=== PATIENT | female | born 1950 | race Caucasian/White ===

== ENCOUNTER 2017-09-15 17:21 | Inpatient (IN) | payer MEDICARE, SELFPAY ==
[~2017-09-15] VITALS: Ht 165.1 cm; Wt 51.7 kg
[~2017-09-15 17:21] MED LIST: BENZ2TAB58 PO; BUPR150SR PO; DONE10TA36 PO; GUAI100S35 PO; HC1C1.5 TP; IBUP-675 PO; LORA1TAB3 PO; PANT40TA25 PO; RISP1 PO; SERT100T12 PO
[2017-09-15 18:20] LABS: BASOPHILS % (AUTO) 0.5 % (0.0-2.0); EOSINOPHILS % (AUTO) 2.4 % (1.0-6.0); HEMATOCRIT 40.4 % (36-46); HEMOGLOBIN 13.8 g/dL (12.0-16.0); LYMPHOCYTES # (AUTO) 2.1 K/uL (1.0-4.8); LYMPHOCYTES % (AUTO) 28.6 % (22.0-44.0); MEAN CORPUSCULAR HEMOGLOBIN 29.8 pg (26.0-34.0); MEAN CORPUSCULAR HGB CONC 34.2 G/dL (31.0-37.0); MEAN CORPUSCULAR VOLUME 87 fL (80-100); MONOCYTES # (AUTO) 0.5 K/uL (0.1-1.0); MONOCYTES % (AUTO) 7.4 % (2.0-9.0); NEUTROPHILS # (AUTO) 4.4 K/uL (1.8-7.7); NEUTROPHILS % (AUTO) 61.1 % (40.0-70.0); PLATELET COUNT (AUTO) 179 K/uL (150-450); RED BLOOD CELL COUNT(AUTO) 4.63 MIL/uL (4.00-5.20); RED CELL DISTRIBUTION WIDTH 12.7 % (11.5-14.5)
[2017-09-15 18:30] LABS: ANION GAP 8 mmol/L (8-16); CALCIUM, TOTAL 9.2 mg/dL (8.8-10.5); CARBON DIOXIDE 28 mmol/L (22-29); CHLORIDE 104 mmol/L (98-107); CREATININE 0.79 mg/dL (0.60-1.30); GLOMERULAR FILTR. RATE CALC > 60 mL/min (>60); GLUCOSE,RANDOM 91 mg/dL (70-110); POTASSIUM 3.6 mmol/L (3.5-5.1); SODIUM SERUM 140 mmol/L (136-145); UREA NITROGEN, BLOOD 6 mg/dL (7-18)
[2017-09-15 18:35] LABS: ALANINE AMINOTRANSFERASE 21 U/L (12-78); ALBUMIN 3.3 g/dL (3.4-5.0); ALKALINE PHOSPHATASE 39 U/L (46-116); ASPARTATE AMINOTRANSFERASE 21 U/L (15-37); BILIRUBIN,TOTAL 0.3 mg/dL (0.1-1.0); CREATINE KINASE, TOTAL 48 U/L (26-192)
[2017-09-15 18:46] LABS: SALICYLATE < 2.8 mg/dL (2.8-20.0)
[2017-09-15 18:48] LABS: B-TYPE NATRIURETIC PEPTIDE 78 pg/mL (0-100)
[2017-09-15 21:39] LABS: ACETAMINOPHEN < 2 mcg/mL (10-30)
[2017-09-15] MEDS ORDERED: IBUPROFEN 400 MG TABLET PO PRN (22:15)
[2017-09-15 22:18] VITALS: BP 140/64
[2017-09-16 00:06] VITALS: BP 98/61
[2017-09-16] MEDS: ZOLPIDEM TARTRATE 10 MG TABLET PO PRN ×2 (00:10→21:03)
[2017-09-16] MEDS: LORazepam 2 MG TABLET PO PRN ×3 (00:10→21:03)
[2017-09-16 07:29] LABS: CHOL/HDL RATIO 3.9 (3.9-5.7)
[2017-09-16 08:00] VITALS: BP 130/92
[2017-09-16 08:40] LABS: AMPHET/METH SCREEN,URINE NEGATIVE (NEGATIVE); BARBITURATE SCREEN, URINE NEGATIVE (NEGATIVE); BENZODIAZEPINES SCREEN,URINE NEGATIVE (NEGATIVE); CANNABINOID SCREEN,URINE NEGATIVE (NEGATIVE); COCAINE SCREEN,URINE NEGATIVE (NEGATIVE); METHADONE SCREEN, URINE NEGATIVE (NEGATIVE); OPIATE SCREEN,URINE NEGATIVE (NEGATIVE)
[2017-09-16 08:41] LABS: PHENCYCLIDINE SCREEN,URINE NEGATIVE (NEGATIVE)
[2017-09-16] MEDS: PANTOPRAZOLE SODIUM 40 MG DR TABLET PO SCH (09:09)
[2017-09-16] MEDS: DONEPEZIL HCL 10 MG TABLET PO SCH (09:09)
[2017-09-16 12:32] LABS: APPEARANCE,URINE CLEAR (CLEAR); BILIRUBIN,URINE NEGATIVE (NEGATIVE); GLUCOSE, URINE (UA) NEGATIVE (NEGATIVE); KETONES,URINE NEGATIVE (NEGATIVE); LEUKOCYTE ESTERASE ,URINE NEGATIVE (NEGATIVE); NITRATE,URINE NEGATIVE (NEGATIVE); OCCULT BLOOD,URINE NEGATIVE (NEGATIVE); PROTEIN,URINE NEGATIVE (NEGATIVE); UROBILINOGEN,URINE 0.2 mg/dL (<=1.0)
[2017-09-16 12:35] LABS: AMPHET/METH SCREEN,URINE NEGATIVE (NEGATIVE); BARBITURATE SCREEN, URINE NEGATIVE (NEGATIVE); BENZODIAZEPINES SCREEN,URINE NEGATIVE (NEGATIVE); CANNABINOID SCREEN,URINE NEGATIVE (NEGATIVE); COCAINE SCREEN,URINE NEGATIVE (NEGATIVE); METHADONE SCREEN, URINE NEGATIVE (NEGATIVE); OPIATE SCREEN,URINE NEGATIVE (NEGATIVE)
[2017-09-16 12:36] LABS: PHENCYCLIDINE SCREEN,URINE NEGATIVE (NEGATIVE)
[2017-09-16] MEDS: HALOPERIDOL 5 MG TABLET PO PRN (16:23)
[2017-09-16 17:09] VITALS: BP 118/72
[2017-09-16] MEDS ORDERED: IBUPROFEN 400 MG TABLET PO PRN (20:45)
[2017-09-17 08:15] VITALS: BP 121/63
[2017-09-17] MEDS: PANTOPRAZOLE SODIUM 40 MG DR TABLET PO SCH (08:27)
[2017-09-17] MEDS: DONEPEZIL HCL 10 MG TABLET PO SCH (08:27)
[2017-09-17] MEDS ORDERED: [UNRECOGNIZED DRUG - OTHER] PO SCH (09:00)
[2017-09-17] MEDS ORDERED: PANTOPRAZOLE SODIUM 40 MG DR TABLET PO SCH (09:00)
[2017-09-17] MEDS: HALOPERIDOL 5 MG TABLET PO PRN ×2 (09:30→16:40)
[2017-09-17] MEDS: LORazepam 2 MG TABLET PO PRN (14:43)
[2017-09-17] MEDS: ZOLPIDEM TARTRATE 10 MG TABLET PO PRN (21:00)
[2017-09-17 21:18] VITALS: BP 125/74
[2017-09-18 01:00] VITALS: BP 118/72
[2017-09-18] MEDS: LORazepam 2 MG TABLET PO PRN (01:07)
[2017-09-18] MEDS: DONEPEZIL HCL 10 MG TABLET PO SCH (08:14)
[2017-09-18] MEDS: PANTOPRAZOLE SODIUM 40 MG DR TABLET PO SCH (08:14)
[2017-09-18 09:57] VITALS: BP 133/60
[2017-09-18] MEDS: ACETAMINOPHEN 325 MG TABLET PO PRN (09:57)
[2017-09-18] MEDS: ONDANSETRON HCL 4 MG TABLET PO PRN (15:20)
[2017-09-18 16:26] VITALS: BP 120/64
[2017-09-18] MEDS: ZOLPIDEM TARTRATE 10 MG TABLET PO PRN (21:36)
[2017-09-19 02:22] VITALS: BP 124/70
[2017-09-19] MEDS: ONDANSETRON HCL 4 MG TABLET PO PRN ×2 (06:51→14:56)
[2017-09-19] MEDS: PANTOPRAZOLE SODIUM 40 MG DR TABLET PO SCH (07:50)
[2017-09-19] MEDS: DONEPEZIL HCL 10 MG TABLET PO SCH (07:50)
[2017-09-19 09:27] VITALS: BP 117/72
[2017-09-19] MEDS: LORazepam 2 MG TABLET PO PRN (09:45)
[2017-09-19 16:58] VITALS: BP 117/79
[2017-09-19] MEDS: ZOLPIDEM TARTRATE 10 MG TABLET PO PRN (21:24)
[2017-09-20 02:10] VITALS: BP 145/82
[2017-09-20] MEDS: ONDANSETRON HCL 4 MG TABLET PO PRN (05:38)
[2017-09-20 08:11] VITALS: BP 136/71
[2017-09-20] MEDS: DONEPEZIL HCL 10 MG TABLET PO SCH (09:34)
[2017-09-20] MEDS: PANTOPRAZOLE SODIUM 40 MG DR TABLET PO SCH (09:34)
[2017-09-20 16:33] VITALS: BP 141/74
[2017-09-20] MEDS: ZOLPIDEM TARTRATE 10 MG TABLET PO PRN (20:40)
[2017-09-21 02:23] VITALS: BP 126/74
[2017-09-21 08:00] VITALS: BP 139/57
[2017-09-21] MEDS: DONEPEZIL HCL 10 MG TABLET PO SCH (10:11)
[2017-09-21] MEDS: DOCUSATE SODIUM 100 MG CAPSULE PO SCH ×2 (10:12→16:41)
[2017-09-21] MEDS: PANTOPRAZOLE SODIUM 40 MG DR TABLET PO SCH (10:12)
[2017-09-21] MEDS: BENZTROPINE MESYLATE 1 MG TABLET PO SCH ×2 (10:12→16:41)
[2017-09-21] MEDS: RisperiDONE 2 MG TABLET PO SCH ×2 (10:12→16:41)
[2017-09-21] MEDS: SERTRALINE HCL 100 MG TABLET PO SCH (10:13)
[2017-09-21] MEDS ORDERED: BISACODYL 5 MG EC TABLET PO PRN (14:15)
[2017-09-21 16:51] VITALS: BP 128/76
[2017-09-22 02:08] VITALS: BP 125/72
[2017-09-22 06:54] VITALS: BP 122/75
[2017-09-22] MEDS: ACETAMINOPHEN 325 MG TABLET PO PRN (06:59)
[2017-09-22] MEDS: RisperiDONE 2 MG TABLET PO SCH ×2 (08:45→16:07)
[2017-09-22] MEDS: SERTRALINE HCL 100 MG TABLET PO SCH (08:45)
[2017-09-22] MEDS: PANTOPRAZOLE SODIUM 40 MG DR TABLET PO SCH (08:45)
[2017-09-22] MEDS: BENZTROPINE MESYLATE 1 MG TABLET PO SCH ×2 (08:45→16:07)
[2017-09-22] MEDS: DOCUSATE SODIUM 100 MG CAPSULE PO SCH ×2 (08:45→16:07)
[2017-09-22] MEDS: DONEPEZIL HCL 10 MG TABLET PO SCH (08:46)
[2017-09-22 09:45] VITALS: BP 123/75
[2017-09-22] MEDS: LORazepam 2 MG TABLET PO PRN (14:45)
[2017-09-22 16:24] VITALS: BP 118/43
[2017-09-23] MEDS: DONEPEZIL HCL 10 MG TABLET PO SCH (08:36)
[2017-09-23] MEDS: RisperiDONE 2 MG TABLET PO SCH ×2 (08:36→16:32)
[2017-09-23] MEDS: DOCUSATE SODIUM 100 MG CAPSULE PO SCH ×2 (08:36→16:33)
[2017-09-23] MEDS: SERTRALINE HCL 100 MG TABLET PO SCH (08:36)
[2017-09-23] MEDS: BENZTROPINE MESYLATE 1 MG TABLET PO SCH ×2 (08:36→16:33)
[2017-09-23] MEDS: PANTOPRAZOLE SODIUM 40 MG DR TABLET PO SCH (08:36)
[2017-09-23 08:55] VITALS: BP 132/69
[2017-09-23 17:22] VITALS: BP 123/91
[2017-09-24 03:25] VITALS: BP 97/69
[2017-09-24 08:00] VITALS: BP 120/79
[2017-09-24] MEDS: DOCUSATE SODIUM 100 MG CAPSULE PO SCH ×2 (08:24→16:48)
[2017-09-24] MEDS: RisperiDONE 2 MG TABLET PO SCH ×2 (08:24→16:49)
[2017-09-24] MEDS: SERTRALINE HCL 100 MG TABLET PO SCH (08:24)
[2017-09-24] MEDS: DONEPEZIL HCL 10 MG TABLET PO SCH (08:24)
[2017-09-24] MEDS: BENZTROPINE MESYLATE 1 MG TABLET PO SCH ×2 (08:25→16:49)
[2017-09-24] MEDS: PANTOPRAZOLE SODIUM 40 MG DR TABLET PO SCH (08:27)
[2017-09-24 20:16] VITALS: BP 125/58
[2017-09-25] MEDS: BENZTROPINE MESYLATE 1 MG TABLET PO SCH ×2 (08:11→16:23)
[2017-09-25] MEDS: SERTRALINE HCL 100 MG TABLET PO SCH (08:11)
[2017-09-25] MEDS: DONEPEZIL HCL 10 MG TABLET PO SCH (08:12)
[2017-09-25] MEDS: DOCUSATE SODIUM 100 MG CAPSULE PO SCH ×2 (08:12→16:23)
[2017-09-25] MEDS: PANTOPRAZOLE SODIUM 40 MG DR TABLET PO SCH (08:12)
[2017-09-25] MEDS: RisperiDONE 2 MG TABLET PO SCH ×2 (08:12→16:23)
[2017-09-25 09:07] VITALS: BP 134/77
[2017-09-25 17:07] VITALS: BP 128/79
[2017-09-26 04:43] VITALS: BP 133/77
[2017-09-26] MEDS: LORazepam 2 MG TABLET PO PRN (04:43)
[2017-09-26 08:06] VITALS: BP 141/66
[2017-09-26] MEDS: PANTOPRAZOLE SODIUM 40 MG DR TABLET PO SCH (08:27)
[2017-09-26] MEDS: RisperiDONE 2 MG TABLET PO SCH ×2 (08:27→16:19)
[2017-09-26] MEDS: BENZTROPINE MESYLATE 1 MG TABLET PO SCH ×2 (08:27→16:19)
[2017-09-26] MEDS: DOCUSATE SODIUM 100 MG CAPSULE PO SCH ×2 (08:27→16:20)
[2017-09-26] MEDS: DONEPEZIL HCL 10 MG TABLET PO SCH (08:27)
[2017-09-26] MEDS: SERTRALINE HCL 100 MG TABLET PO SCH (08:27)
[2017-09-26] MEDS ORDERED: BENZOCAINE/MENTHOL LOZENGE [8 LOZENGES/PACKET] PO PRN (15:00)
[2017-09-26 22:09] VITALS: BP 98/85
[2017-09-27 08:20] VITALS: BP 121/82
[2017-09-27] MEDS: DONEPEZIL HCL 10 MG TABLET PO SCH (08:36)
[2017-09-27] MEDS: RisperiDONE 2 MG TABLET PO SCH ×2 (08:36→16:22)
[2017-09-27] MEDS: BENZTROPINE MESYLATE 1 MG TABLET PO SCH ×2 (08:36→16:22)
[2017-09-27] MEDS: PANTOPRAZOLE SODIUM 40 MG DR TABLET PO SCH (08:36)
[2017-09-27] MEDS: SERTRALINE HCL 100 MG TABLET PO SCH (08:37)
[2017-09-27] MEDS: DOCUSATE SODIUM 100 MG CAPSULE PO SCH ×2 (08:38→16:22)
[2017-09-27 19:58] VITALS: BP 111/72
[2017-09-28 05:26] VITALS: BP 141/83
[2017-09-28] MEDS: HALOPERIDOL 5 MG TABLET PO PRN (05:36)
[2017-09-28] MEDS: LORazepam 2 MG TABLET PO PRN (05:36)
[2017-09-28] MEDS: DOCUSATE SODIUM 100 MG CAPSULE PO SCH ×2 (09:29→16:54)
[2017-09-28] MEDS: SERTRALINE HCL 100 MG TABLET PO SCH (09:29)
[2017-09-28] MEDS: BENZTROPINE MESYLATE 1 MG TABLET PO SCH ×2 (09:29→16:54)
[2017-09-28] MEDS: PANTOPRAZOLE SODIUM 40 MG DR TABLET PO SCH (09:29)
[2017-09-28] MEDS: RisperiDONE 2 MG TABLET PO SCH ×2 (09:29→16:54)
[2017-09-28] MEDS: DONEPEZIL HCL 10 MG TABLET PO SCH (09:30)
[2017-09-28 17:39] VITALS: BP 125/70
[2017-09-29 05:12] VITALS: BP 124/74
[2017-09-29 08:50] VITALS: BP 134/57
[2017-09-29] MEDS: DONEPEZIL HCL 10 MG TABLET PO SCH (08:50)
[2017-09-29] MEDS: BENZTROPINE MESYLATE 1 MG TABLET PO SCH (08:50)
[2017-09-29] MEDS: RisperiDONE 2 MG TABLET PO SCH (08:51)
[2017-09-29] MEDS: PANTOPRAZOLE SODIUM 40 MG DR TABLET PO SCH (08:51)
[2017-09-29] MEDS: DOCUSATE SODIUM 100 MG CAPSULE PO SCH (08:51)
[2017-09-29] MEDS: SERTRALINE HCL 100 MG TABLET PO SCH (08:51)
[2017-09-29] MEDS: ACETAMINOPHEN 325 MG TABLET PO PRN (08:56)
[2017-09-29] MEDS ORDERED: BENZ1TAB10 PO (10:40)
[2017-09-29] MEDS ORDERED: RISP2 PO (10:40)
[2017-09-29] MEDS ORDERED: DSS100 PO (10:42)
== END 2017-09-29 13:01 | DRG 750 ==
LOC: EMS 17:22 → 3EI 21:13 → 3EX 21:13
PROVIDERS: ADMIT Psychiatry & Neurology Psychiatry; ATTEND Psychiatry & Neurology Psychiatry
DX: F25.9 Schizoaffective disorder, unspecified (principal); E43 Unspecified severe protein-calorie malnutrition; F03.90 Unspecified dementia, unspecified severity, without behavioral disturbance, psychotic disturbance, mood disturbance, and anxiety; F32.9 Major depressive disorder, single episode, unspecified; G89.29 Other chronic pain; K21.9 Gastro-esophageal reflux disease without esophagitis; K59.00 Constipation, unspecified; E78.5 Hyperlipidemia, unspecified; F41.9 Anxiety disorder, unspecified; Z88.8 Allergy status to other drugs, medicaments and biological substances; Z79.899 Other long term (current) drug therapy; Z68.1 Body mass index [BMI] 19.9 or less, adult
CPT/HCPCS: 80307; 83036; 93005; 99285; G0480; G0481; Q0162